=== PATIENT | male | born 1960 | race Caucasian/White ===

== ENCOUNTER 2017-08-17 01:11 | Emergency (ER) ==
[2017-08-17 01:23] VITALS: BP 143/93; TEMP 97.1; BMI 28.7
[2017-08-17] MEDS ORDERED: DECADRON 4 MG/ML SDV IM STA (01:44)
[2017-08-17] MEDS ORDERED: TORADOL IM STA (01:44)
--- NOTE | 2017-08-17 01:45 | ED.PDOC ---
General ED Provider: Dr. HENRY SUGGS Chief Complaint: Back Pain Stated Complaint: sudden onset of mid back pain after twisting to throw away trush. Pain is severe and radiates to the front. Pain is worse with deep breathing. Time Seen by Physician: 01:43 Mode of Arrival: Walk-In Information Source: Patient Exam Limitations: No limitations Primary Care Provider: AUGUST WILD Nursing and Triage Documentation Reviewed and Agree: Yes Reviewed sepsis parameters & appropriate labs ordered?: No System Inflammatory Response Syndrome: Not Applicable Sepsis Protocol: For patient's 13 years and over: Temp is 96.8 and below OR 101 and greater Pulse >90 BPM Resp >20/minute Acutely Altered Mental Status Are patient's symptoms suggestive of a new infection, such as: -Pneumonia -Skin, Soft Tissue -Endocarditis -UTI -Bone, Joint Infection -Implantable Device -Acute Abdominal Infection -Wound Infection -Meningitis -Blood Stream Catheter Infection -Unknown System Inflammatory Response Syndrome: Not Applicable Review of Systems - Review Of Systems Constitutional: Reports: No symptoms Musculoskeletal: Reports: Back pain Neurological: Reports: Anxiety All Other Systems: Reviewed and Negative Past Medical History - Past Medical History Previously Healthy: Yes Endocrine: Reports: None Cardiovascular: Reports: Hypertension Respiratory: Reports: None Hematological: Reports: None Gastrointestinal: Reports: None Genitourinary: Reports: None Neuro/Psych: Reports: None Musculoskeletal: Reports: Arthritis, Back Pain Cancer: Reports: None - Surgical History General Surgical History: Reports: Back Surgery (x3) - Family History Family History: Reports: Unknown - Social History Smoking Status: Former smoker Hx Substance Use: No Alcohol Screening: None - Immunizations Tetanus Shot up to Date: Yes Physical Exam - Physical Exam Appearance: Ill-appearing Ill-appearing: Moderate Pain Distress: Severe Eyes: TANVIR, EOMI, Conjunctiva clear ENT: Ears normal, Nose normal, Oropharynx normal Neck: Supple Respiratory: Airway patent, Breath sounds clear, Breath sounds equal, Respirations nonlabored Cardiovascular: RRR, Pulses normal, No rub, No murmur GI/: Soft, Nontender Musculoskeletal: Limited ROM (back ) Skin: Warm, Dry, Normal color Neurological: Sensation intact, Motor intact, Reflexes intact, Cranial nerves intact, Alert, Oriented Psychiatric: Anxious Critical Care Note - Critical Care Note Total Time (mins): 0 Comments: Declines to get any x rays today. state it feels like prior back pain Course - Course Orders, Labs, Meds: Orders Category Date Time Status Dexamethasone 4 mg/ml Inj [Decadron 4 mg/ml Sdv] MEDS 08/17/17 01:44 Discontinued 8 mg IM ONCE STA Ed After Hour Supply Med [Ed After Hours Supply Med MEDS 08/17/17 01:49 Discontinued Sent Home] 1 each PO ONCE ONE Hydrocodone Bit/Acetaminophen [Cairo 5-325] MEDS 08/17/17 01:59 Discontinued 2 tab .ROUTE .STK-MED ONE Hydrocodone Bit/Acetaminophen [Cairo 5-325] MEDS 08/17/17 02:16 Discontinued 2 tab .ROUTE .STK-MED ONE Ketorolac Tromethamine [Toradol] MEDS 08/17/17 01:44 Discontinued 60 mg IM ONCE STA Medications Discontinued Medications Generic Name Dose Route Start Last Admin Trade Name Freq PRN Reason Stop Dose Admin Dexamethasone Sodium Phosphate 8 mg 08/17/17 01:44 08/17/17 01:59 Decadron 4 Mg/Ml Sdv IM 08/17/17 01:45 8 mg ONCE STA Administration Ketorolac Tromethamine 60 mg 08/17/17 01:44 08/17/17 01:57 Toradol IM 08/17/17 01:45 60 mg ONCE STA Administration Miscellaneous Information 1 each 08/17/17 01:49 08/17/17 06:48 Ed After Hours Supply Med Sent Home PO 08/17/17 01:50 Not Given ONCE ONE Protocol Vital Signs: Temp Pulse Resp BP Pulse Ox 08/17/17 01:12 97.1 F L 77 18 143/93 H 98 Departure - Departure Time of Disposition: 01:45 Disposition: HOME SELF-CARE Discharge Problem: Backache Instructions: Back Pain (ED) Condition: Fair Pt referred to PMD for follow-up: Yes IPMP verified?: No Additional Instructions: Follow up with PCP in 3 days [place] medications as prescribed Prescriptions: Hydrocodone/Acetaminophen [Cairo 5-325 Tablet] 1 tab PO Q6HR PRN #12 tablet PRN Reason: PAIN Ibuprofen [Motrin] 600 mg PO Q6H PRN #30 tablet PRN Reason: Analgesia Allergies/Adverse Reactions: Allergies No Known Drug Allergies Adverse Reaction (Verified 08/17/17 01:21) Home Medications: Ambulatory Orders Hydrocodone/Acetaminophen [Cairo 5-325 Tablet] 1 tab PO Q6HR PRN #12 tablet 12/27 Ibuprofen [Motrin] 600 mg PO Q6H PRN #30 tablet 08/17/17 Metoprolol Tartrate [Lopressor] 25 mg PO BID 08/17/17 Omeprazole [Prilosec] 20 mg PO QDAC 08/17/17 Triamterene/Hydrochlorothiazid [Dyazide 37.5-25 Capsule] 1 each PO DAILY Disposition Discussed With: Patient, Family
[2017-08-17] MEDS ORDERED: ED AFTER HOURS SUPPLY MED SENT HOME PO ONE (01:49)
[2017-08-17] MEDS ORDERED: NORCO 5-325 ONE ×2 (01:59→02:16)
== END 2017-08-17 02:29 | disposition home or self-care (01) ==
LOC: ED 01:11
DX: M54.9 Dorsalgia, unspecified (principal); X50.1XXA Overexertion from prolonged static or awkward postures, initial encounter
CPT/HCPCS: 96372; 99282